=== PATIENT | female | born 1995 | race Caucasian/White ===

== ENCOUNTER 2018-08-26 20:57 | Emergency (ER) | payer MEDICAID, OTHER ==
[~2018-08-26] VITALS: Ht 160 cm; Wt 55.8 kg
--- NOTE | 2018-08-26 21:35 | PHYS DOC ---
Adult General Chief Complaint Chief Complaint: LOWEREXTREMITY INJURY HPI HPI Patient is a 22 year old female who presents with complaint of right lower extremity pain. Patient reports that at approximately 1900 this evening a Ish and Timothy fell off of a TV stand onto the lateral aspect of her right lower leg. States that this caused severe pain. States that she is unable to bear weight on the affected extremity at this time secondary to pain. Has not taken any medications at home. 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 She denies any other injuries. Does note that she suffered abrasions along the lateral aspect of her right lower leg and states that it goes down all the way towards the ankle and foot. Review of Systems Review of Systems Constitutional: Denies fever or chills [] Musculoskeletal: Right lower extremity pain[] Integument: Abrasions to right lower extremity[] Neurologic: Denies headache, focal weakness or sensory changes [] All other systems were reviewed and found to be within normal limits, except as documented in this note. Current Medications Current Medications Current Medications Medications (Trade) Dose Ordered Sig/Ismael Start Time Stop Time Status Last Admin Dose Admin Acetaminophen (Tylenol) 650 mg 1X ONCE 08/26/18 21:30 08/26/18 21:31 UNV Ibuprofen (Motrin) 400 mg 1X ONCE 08/26/18 21:30 08/26/18 21:31 UNV Allergies Allergies Allergies Coded Allergies Type Severity Reaction Last Updated Verified No Known Drug Allergies 08/26/18 No Physical Exam Physical Exam Constitutional: Well developed, well nourished, no acute distress, non-toxic appearance. [] Skin: Warm, dry, no erythema, no rash. [] Extremities: Abrasions along the lateral aspect of the right lower leg extending from the proximal calf distally to the lateral malleolus, no significant soft tissue swelling or deformity, tenderness to palpation throughout lateral and posterior right lower extremity, sensation normal in all 5 digits of the right foot, pulses 2+ in right foot, right knee examination normal. [] Neurologic: Alert and oriented X 3, normal motor function, normal sensory function, no focal deficits noted. [] Current Patient Data Vital Signs Vital Signs Date Time Temp Pulse Resp B/P (MAP) Pulse Ox O2 Delivery O2 Flow Rate FiO2 08/26/18 21:48 83 18 105/69 (81) 98 Room Air 08/26/18 21:20 98.2 Lab Results Not performed EKG EKG Not performed[] Radiology/Procedures Radiology/Procedures Two-view right tibia and fibula x-ray interpreted by me: No acute fractures of the tibia or fibula, multiple ossified cystic lesions noted in both the proximal and distal fibula and tibia, normal soft tissue[] Course & Med Decision Making Course & Med Decision Making Pertinent Labs and Imaging studies reviewed. (See chart for details) X-ray show no acute fractures. Cystic lesions were noted in the tibia and fibula. This was communicated to the patient. Advised follow-up with primary doctor in 1 week for reevaluation. Treated with ibuprofen and Tylenol. P rovided with crutches to assist with ambulation. Advised return to emergency department for any worsening symptoms. Patient was understanding and agreement with treatment plan.[] Dragon Disclaimer Dragon Disclaimer This electronic medical record was generated, in whole or in part, using a voice recognition dictation system. Departure Departure: Impression: Primary Impression: Contusion, lower leg Additional Impressions: Abrasion Bone cyst of right fibula Bone cyst of right tibia Disposition: HOME, SELF-CARE Condition: STABLE Referrals: PCP,NO (PCP) Patient Instructions: Abrasion, [id number], Contusion Additional Instructions: Your x-rays today showed no fracture of your right lower leg bones. Multiple bone cysts were noted. It is recommended that these be followed up by your primary doctor in 1 week to discuss need for further referral. Continue to treat your symptoms with ibuprofen and Tylenol available [id number] as directed on packaging. Return to the emergency department for any worsening symptoms. Problem Qualifiers Primary Impression: Contusion, lower leg Encounter type: initial encounter Laterality: right Qualified Codes: S80.11XA - Contusion of right lower leg, initial encounter ARY MACARIO MD Aug 26, 2018 21:35
[2018-08-26] MEDS ORDERED: ACETAMINOPHEN 325 MG TABLET PO ONE (21:45)
[2018-08-26] MEDS ORDERED: IBUPROFEN 400 MG TABLET. PO ONE (21:45)
[2018-08-26 21:48] VITALS: BP 105/69
--- NOTE | 2018-08-27 00:48 | RAD ---
AP and lateral right tibia and fibula radiographs 08/26/2018 CLINICAL HISTORY: Television fell on the right lower leg. Pain. History of multiple osteochondromatosis. 2 AP and 2 lateral digital radiographs of the right tibia and fibula were obtained. No fracture or dislocation is seen. Multiple osteochondromas are seen involving the distal right femur along with the right tibia and fibula consistent with the patient's history. IMPRESSION: No fracture or dislocation of the right tibia or fibula is seen. Electronically signed by: Shahab Shankar MD (08/27/2018 12:45 AM) [id number]
== END 2018-08-26 22:13 | disposition home or self-care (01) ==
LOC: ER 20:57
DX: S80.11XA Contusion of right lower leg, initial encounter (principal); M85.661 Other cyst of bone, right lower leg; W20.8XXA Other cause of strike by thrown, projected or falling object, initial encounter; Y93.89 Activity, other specified; Y92.89 Other specified places as the place of occurrence of the external cause; Y99.8 Other external cause status
CPT/HCPCS: 73590; 99284